=== PATIENT | female | born 1975 | race Two or more races ===

== ENCOUNTER 2023-06-10 10:56 | Emergency (ER) | payer MEDICAID, OTHER ==
[2023-06-10] MEDS ORDERED: MORPHINE SULFATE 4 MG/ML SYR/VIAL IV ONE (12:00)
[2023-06-10] MEDS ORDERED: ONDANSETRON HCL 4 MG/2 ML VIAL IV ONE (12:00)
[2023-06-10] MEDS ORDERED: SODIUM CHLORIDE 0.9% 1,000 ML IVB ONE (12:00)
[2023-06-10 12:25] LABS: Red Blood Cells 3.95 10^6/uL (4.0-5.20); White Blood Cell 8.7 10^3/uL (4.4-10.8)
[2023-06-10 12:27] LABS: Urine Epithelial Cast None Seen /hpf (<5)
[2023-06-10 12:27] LABS: Hemoglobin 10.3 g/dL (12.2-16.2); Mean Corpuscular Hgb Conc. 32.1 g/dL (32.0-36.0); Mean Corpuscular Volume 81.1 fL (80.0-100.0); Red Cell Distribution Width 15.2 % (11.8-14.3)
[2023-06-10 12:31] LABS: Basophils % (manual) 0 (0.0-2.0); Blast Cells 0; Eosinophils % (manual) 0 (0-7); Myelocytes % 0; Promyelocytes % 0; Reactive Lymphocytes 0
[2023-06-10 12:39] LABS: Chloride 105 mmol/L (98-107); Potassium 3.2 mmol/L (3.5-5.1); Sodium 137 mmol/L (136-145)
[2023-06-10 12:40] LABS: Anion Gap 9 (5-15); Calcium 8.6 mg/dL (8.7-10.4); Carbon Dioxide 23 mmol/L (20-30)
[2023-06-10 12:44] LABS: Band Neutrophils % (manual) 13; Lymphocytes % (manual) 6 (10.0-50.0); Metamyelocytes % 7; Monocytes % (manual) 1 (0-12); Platelet Estimate Adequate; Toxic Granulation Slight
[2023-06-10 12:45] LABS: BUN/Creatinine Ratio 13.9 (10.0-20.0); Blood Urea Nitrogen 15 mg/dL (9-23); Glucose 93 mg/dL (74-106); Lipase 31 U/L (12-53)
[2023-06-10 13:02] LABS: Urine Bacteria FEW /hpf (None Seen); Urine Blood 2+ /uL (Negative); Urine Budding Yeast OCCASIONAL /hpf (None Seen); Urine Clarity HAZY (Clear); Urine Color Brown (Yellow); Urine Protein, UAD 1+ (Negative); Urine Specific Gravity 1.019 (1.001-1.035); Urine WBC 621 /hpf (0 - 5); Urine WBC Clumps PRESENT /hpf (None Seen)
[2023-06-10] MEDS ORDERED: cefTRIAXone SOD 1,000 MG VL IM ONE (14:45)
[2023-06-10] MEDS ORDERED: BACDST PO ×2 (14:46→15:12)
[2023-06-10 15:05] VITALS: BP 108/62; PULSE 76; RESP 18; TEMP 97.1; O2SAT 98
[2023-06-10] MEDS ORDERED: HYDR-4902 PO (15:12)
== END 2023-06-10 14:47 | disposition home or self-care (01) ==
LOC: ER 10:56
DX: N12 Tubulo-interstitial nephritis, not specified as acute or chronic (principal); I10 Essential (primary) hypertension; E11.9 Type 2 diabetes mellitus without complications; Z98.890 Other specified postprocedural states; Z79.899 Other long term (current) drug therapy
CPT/HCPCS: 36415; 80048; 81001; 83690; 85007; 85027; 96361; 96372; 96374; 96375; 99284; J0696; J2270; J2405; J7030

== ENCOUNTER 2024-01-01 20:44 | Emergency (ER) | payer MEDICAID, OTHER ==
[~2024-01-01] VITALS: Ht 160 cm; Wt 77.6 kg
[~2024-01-01 20:44] MED LIST: BACDST PO; HYDR-4902 PO
[2024-01-01 23:50] VITALS: BP 139/77; PULSE 64; RESP 12; TEMP 98.4; O2SAT 100
[2024-01-02] MEDS ORDERED: IBUP-1456 PO (01:11)
[2024-01-02] MEDS ORDERED: AMOX875T4 PO (01:11)
[2024-01-02] MEDS ORDERED: ACET500T58 PO (01:14)
[2024-01-02] MEDS: BENZOCAINE (DENTAL) 20 % SPRAY 60ML MT ONE (01:25)
[2024-01-02] MEDS: KETOROLAC TROMETH 60MG/2ML VIAL IM ONE (01:30)
[2024-01-02] MEDS: cefTRIAXone SOD 1,000 MG VL IM ONE (01:30)
== END 2024-01-02 01:34 | disposition home or self-care (01) ==
LOC: ER 20:44
DX: K04.7 Periapical abscess without sinus (principal); I10 Essential (primary) hypertension; E11.9 Type 2 diabetes mellitus without complications; Z98.890 Other specified postprocedural states; Z79.899 Other long term (current) drug therapy
CPT/HCPCS: 96372; 99284; J0696; J1885

== ENCOUNTER 2024-05-08 10:59 | Emergency (ER) | payer MEDICAID, OTHER ==
[~2024-05-08] VITALS: Ht 160 cm; Wt 72.5 kg
[~2024-05-08 10:59] MED LIST changes: +ACET500T58 PO; +AMOX875T4 PO
--- NOTE | 2024-05-08 11:39 | ED.PDOC ---
GI ASSESSMENT HPI Comments HPI: 48y F who presents to the ED for chief complaint of abdominal pain. Pt had the following ED course: - pt has been having nausea, 1x vomiting episode and diarrhea yesterday. Nonbloody nonbilious. - pt states she has been associated abdominal cramps but states her cramps have persisted until day but denies any associated nasuea, vomiting or diarrhea today - pt has taken ibuprofen for pain but states it has not helped - pt denies any associated symptoms at this time. - pt denies sick contacts or changes to diet VITALS: Temp:98.3 F RR: 18 02 sat : 95 % on room air HR: 94 BP: 123/61 PMH: DM, HTN, GERD, PSH: gastric sleeve, breast augmentation Social history: endorses tobacco use, denies ETOH use, endorses drug use (marijuana ) Medications: denies Allergies: none HPI: Poor Historian. REVIEW OF SYSTEMS: CONSTITUTIONAL: Denies acute: fever, diaphoresis, chills, generalized weakness. HEAD: Denies acute: headache, photophobia Eyes: Denies acute: Double vision, vision loss, eye pain, eye discharge. EARS: Denies acute: tinnitus, hearing loss, ear discharge, ear pain, THROAT: Denies acute: sore throat, swelling, difficulty swallowing , pain with swallowing, change in voice. NECK: Denies acute: neck pain, neck swelling, stiff neck. HEART: Denies acute : chest pain, palpitations, LUNGS: Denies acute: SOB, wheezing, cough, hemoptysis ABDOMEN: Denies acute: melena , hematemesis, hematochezia SKIN: Denies acute: rash, redness, lesions, itchiness. EXTREMITIES: Denies acute: calf pain, numbness, tingling, weakness, denies pain in extremity. Denies acute: Low back pain. Neuro: Denies acute: focal neurological deficit, motor or sensory focal neurological deficit, tremors, seizure like activity, confusion, dizziness, change in mental status, loss of bowel or bladder function, cauda equina like symptoms. : Denies acute: dysuria, hematuria, flank pain, increase in urinary frequency. PSYCH: Denies acute: hallucination, suicidal ideation, homicidal ideation. FEMALE: Denies acute: abnormal vaginal bleeding, foul odor, unusual discharge. PHYSICAL EXAM: General: no acute distress, awake and alert. Head: normocephalic, atraumatic. Neck: supple, trachea is midline, no swelling. Throat: Normal phonation. Eyes:, no erythema, no purulent discharge, no proptosis, no icterus. Heart: regular rate, regular rhythm, no significant murmur appreciated. Lungs: no apparent respiratory distress, Able to speak in full sentences. No wheezing, no rhonchi, no crackles. No stridors Clear to auscultation bilaterally. Abdomen: Lower mid abdomen tender to palpation, non distended, soft, no guarding, no rebound, + bowel sounds. Neuro: Awake, Alert, oriented to name, self, situation, follows commands GCS=15. Speech is normal. Skin: no petechia, no purpura, no cyanosis, non-pale, not jaundice. Lower extremities: --no - Pitting edema no deformity, no focal swelling, no calf TTP. Makes eye contact. moves all four extremities. Face: no apparent facial droop. Ambulating in the ED independently. Chief Complaint: Abdominal Pain Time Seen by MD: 11:36 Primary Care Provider: UNKNOWN Reviewed Notes: Nurses Notes, Allergies Allergies: Coded Allergies: NO KNOWN ALLERGIES (Unverified , 06/10/23) Home Meds Active Scripts Ondansetron Odt 4MG Tab (ZOFRAN PO) 4 Mg Tb, 4 MG PO Q8HPRN PRN for 3 Days, #9 TAB ODT TAB-DISSOLVE IN MOUTH, THEN SWALLOW Prov:GARTH GARZON DO 05/08/24 Ciprofloxacin Hcl (Cipro) 500 Mg Tab, 500 MG PO BID for 7 Days, #14 CAP Prov:GARTH GARZON DO 05/08/24 Acetaminophen (Acetaminophen) 500 Mg Tab, 500 MG PO Q4HPRN, #30 TAB 0 Refills Prov:SANDRA RONDON 01/02/24 Amoxicillin & Pot Clavulanate (Amoxicillin/Potassium Cla) 875 Mg Tab, 1 TAB PO BID for 7 Days, #14 TAB 0 Refills Prov:SANDRA RONDON 01/02/24 Hydrocodone-Acetaminophen (Hydrocodone Bitartrate/AC 5-325 mg) 1 Tab Tab, 1 TAB PO DAILY for 5 Days, #5 TAB Prov:NICA ZARAGOZA MD 06/10/23 Sulfamethoxazole W/Trimethopri (Bactrim Ds Tablet) 1 Tab Tb, 1 TAB PO BID for 10 Days, #20 TAB Prov:INCA ZARAGOZA MD 06/10/23 Sulfamethoxazole W/Trimethopri (Bactrim Ds Tablet) 1 Tab Tb, 1 TAB PO BID for 10 Days, #20 TAB Prov:NICA ZARAGOZA MD 06/10/23 Information Source: Patient Mode of Arrival: Ambulatory Past Medical History PAST MEDICAL HISTORY: DM, HTN MEDICAL DETAIL REPRESENTATIVE History: No Pertinent MEDICAL DETAIL REPRESENTATIVE History Family History Family History: Reviewed,noncontributory to illness Social History Smoker: Non-Smoker Alcohol: Denies ETOH Use Drugs: Denies Drug Use Lives In: Home Was a procedure done? Was a procedure done?: No X-Ray, Labs, Meds, VS Vital Signs Date Time Temp Pulse Resp B/P (MAP) Pulse Ox O2 Delivery O2 Flow Rate FiO2 05/08/24 19:38 Room Air* 0 21 05/08/24 19:13 98.5 84 18 106/67 (80) 98 98.5 05/08/24 17:22 101/53 05/08/24 16:34 98.1 90 18 104/62 (76) 100 98.1 05/08/24 13:26 97.9 78 17 124/57 (79) 100 97.9 05/08/24 13:26 78 17 100 Room Air 05/08/24 11:17 98.3 94 18 123/61 (81) 95 Lab Test 05/08/24 18:37 05/08/24 14:19 05/08/24 12:56 05/08/24 11:21 Range/Units White Blood Count 13.6 H 13.9 H 4.4-10.8 10^3/uL Red Blood Count 3.40 L 3.85 L 4.0-5.20 10^6/uL Hemoglobin 7.9 L 8.8 L 12.2-16.2 g/dL Hematocrit 26.1 #L 29.4 L 36.0-46.0 % Mean Corpuscular Volume 76.9 L 76.3 L 80.0-100.0 fL Mean Corpuscular Hemoglobin 23.2 L 22.8 L 28.0-32.0 pg Mean Corpuscular Hemoglobin Concent 30.1 L 29.9 L 32.0-36.0 g/dL Red Cell Distribution Width 17.1 H 17.2 H 11.8-14.3 % Platelet Count 234 322 140-450 10^3/uL Mean Platelet Volume 9.1 9.0 6.9-10.8 fL Neutrophils (%) (Auto) 86.8 H 84.6 H 37.0-80.0 % Lymphocytes (%) (Auto) 7.3 L 9.0 L 10.0-50.0 % Monocytes (%) (Auto) 5.5 6.0 0.0-12.0 % Eosinophils (%) (Auto) 0.3 0.2 0.0-7.0 % Basophils (%) (Auto) 0.1 0.2 0.0-2.0 % Neutrophils # (Auto) 11.8 H 11.8 H 1.6-8.6 10 ^3/uL Lymphocytes # (Auto) 1.0 1.3 0.4-5.4 10 ^3/uL Monocytes # (Auto) 0.8 0.8 0-1.3 10 ^3/uL Eosinophils # (Auto) 0 0 0-0.8 10 ^3/uL Basophils # (Auto) 0 0 0-0.2 10 ^3/uL Nucleated Red Blood Cells 0.0 0.0 % Troponin I High Sensitivity < 3 L < 3 L < 3 L </=34 ng/L Sodium Level 138 136-145 mmol/L Potassium Level 3.8 3.5-5.1 mmol/L Chloride Level 106 98-107 mmol/L Carbon Dioxide Level 24 20-31 mmol/L Anion Gap 8 5-15 Blood Urea Nitrogen 20 9-23 mg/dL Creatinine 1.10 H 0.550-1.02 mg/dL Glomerular Filtration Rate Calc 63 >90 mL/min BUN/Creatinine Ratio 18.2 10.0-20.0 Serum Glucose 111 H 74-106 mg/dL Lactic Acid Level 1.6 0.4-2.0 mmol/L Calcium Level 10.1 8.7-10.4 mg/dL Total Bilirubin 0.8 0.2-1.0 mg/dL Aspartate Amino Transferase (AST) 12 L 13-40 U/L Alanine Aminotransferase (ALT) 12 7-40 U/L Alkaline Phosphatase 70 46-116 U/L Total Protein 6.7 5.7-8.2 g/dL Albumin 4.3 3.2-4.8 g/dL Lipase 35 12-53 U/L Beta HCG, Quantitative 1.6 1.5-4.2 mIU/mL Test 05/08/24 11:19 Range/Units Urine Color Yellow Yellow Urine Clarity Turbid H Clear Urine pH 6.0 5.0-9.0 Urine Specific [place] 1.039 H 1.001-1.035 Urine Protein 1+ H Negative Urine Ketones Trace Negative Urine Blood Negative Negative /uL Urine Nitrite Negative Negative Urine Bilirubin Negative Negative Urine Urobilinogen Normal Negative mg/dL Urine Leukocyte Esterase 3+ Negative /uL Urine RBC 3 0 - 4 /hpf Urine WBC 19 0 - 5 /hpf Urine Squamous Epithelial Cells Many <5 /hpf Urine Bacteria Few H None Seen /hpf Urine Mucus Few None Seen Urine Glucose Normal Normal mg/dL Current Medications Medications (Trade) Dose Ordered Sig/Bernard Route Start Time Stop Time Status Last Admin Sodium Chloride 1,000 ml @ 1,000 mls/hr Q1H ONCE IV 05/08/24 13:15 05/08/24 14:14 DC 05/08/24 13:37 Ondansetron HCl (Zofran Po) 8 mg ONCE ONCE PO 05/08/24 13:15 05/08/24 13:21 DC 05/08/24 13:37 Ceftriaxone Sodium 50 ml @ 100 mls/hr ONCE ONCE IV 05/08/24 13:15 05/08/24 13:44 DC 05/08/24 13:15 Levofloxacin (Levaquin Tablet) 750 mg ONCE ONCE PO 05/08/24 13:15 05/08/24 13:21 DC 05/08/24 13:40 Acetaminophen/ Hydrocodone Bitart (Reseda 5/325MG Tab) 1 tab ONCE ONCE PO 05/08/24 14:15 05/08/24 14:25 DC 05/08/24 14:32 Fentanyl Citrate 100 mcg ONCE ONCE IV 05/08/24 15:45 05/08/24 15:46 DC 05/08/24 17:22 Sodium Chloride 1,000 ml @ 1,000 mls/hr Q1H ONCE IV 05/08/24 16:15 05/08/24 17:14 DC 05/08/24 16:11 [facility] [id number] [place] [id number] Ph: [phone] DIAGNOSTIC IMAGING Diagnostic Imaging Report : [id number] Signed PATIENT: BEL VYAST: [id number] UNIT: [id number] : 1975 LOC: ER ROOM / BED: / AGE / SEX: 48 / F ADM STATUS: REG ER SERVICE 1113 ORDERING PHYSICIAN: GARTH GARZON DO PROCEDURE(s): ABPL - CT AB PEL WO CON-NO ORAL OR IV REASON: LOWER ABD PAIN ORDER NUMBER(s): [id number], ACCESSION NUMBER(s): [id number] CT ABDOMEN AND PELVIS WITHOUT CONTRAST CLINICAL HISTORY: LOWER ABD PAIN TECHNIQUE: Multiple contiguous axial images of the abdomen and pelvis without intravenous contrast. The images were reformatted degenerate coronal and sagittal reconstructions. All CT scans at this medical facility are performed using dose modulation techniques as appropriate to a performed exam including the following:Automated exposure control was utilized; adjustment of the MA and/or KV according to patient size; and use of iterative reconstruction technique. Radiation Dose Information: CT Dose: CTDI volume is 9 mGy. Dose-length product is 438 mGy*cm Comparison: None FINDINGS: Evaluation of the abdomen and pelvis is limited without intravenous contrast. There are gastric postsurgical changes likely related to prior sleeve surgery. There are small hiatal hernia. Gallbladder is surgically absent. The liver, pancreas, kidneys, adrenal glands, and spleen appear within normal limits. There is no gross evidence of abdominal lymphadenopathy. There is no free fluid or free air. The stomach grossly appears unremarkable. The small and large bowel loops demonstrate normal caliber and appear within normal limits.. A normal-appearing appendix is seen in the right lower quadrant abdomen without associated inflammatory changes. The abdominal aorta and IVC appear within normal limits. Bladder is decompressed limiting evaluation. Pelvic organ appears within normal limits. There is no gross evidence of a pelvic mass. There is no free fluid collection. Lung bases are clear. There is no acute osseous abnormality. Bilateral breast implants. IMPRESSION: 1. There is no acute process in the abdomen and pelvis. 2. Likely prior gastric sleeve surgery with small hiatal hernia. 3. Cholecystectomy. HS:Y ATED BY: NIEVES TURCIOS MD DICTATED DATE/TIME: 05/08/241255 SIGNED BY: NIEVES TURCIOS MD SIGNED DATE/TIME: 05/08/241255 CC: [address] [address] Ph: [phone] DIAGNOSTIC IMAGING Diagnostic Imaging Report : [id number] Signed PATIENT: SYEDA VYASACCT: [id number] UNIT: [id number] : 1975 LOC: ER ROOM / BED: / AGE / SEX: 48 / F ADM STATUS: REG ER SERVICE 23 ORDERING PHYSICIAN: GARTH GARZON DO PROCEDURE(s): PELUS - PELVIC REASON: lower abd pain ORDER NUMBER(s): [id number], ACCESSION NUMBER(s): [id number] INDICATION: lower abd pain TECHNIQUE: Multiple real-time grayscale transabdominal sonographic images along with color and duplex Doppler of the uterus and ovaries were obtained. COMPARISON: None FINDINGS: The uterus measures 10.6 x 5.6 x 6.1 cm. The endometrial stripe measures 0.6 cm. Right ovary measures 3.6 x 2.3 x 2.5 cm with normal Doppler color flow. Since is seen in the right ovary measuring 1.7 x 1.3 x 2.4 cm, likely corpus luteal cyst. Left ovary measures 3.6 x 2.4 x 2.8 cm with normal Doppler color flow IMPRESSION: 1. Grossly unremarkable pelvic ultrasound. ATED BY: BRETT REDMAN MD DICTATED DATE/TIME: 05/08/242024 SIGNED BY: BRETT REDMAN MD SIGNED DATE/TIME: 05/08/242024 CC: Time of 1ST Reevaluation: 20:40 Reevaluation 1ST: Improved Patient Education/Counseling: Diagnosis, Treatment Family Education/Counseling: No Family Present Comments MDM: Patient presented with the above HPI.----- abdominal pain -workup was initiated. patient was found with the above mentioned diagnosis. the following medications were ordered: none the following tests were ordered: CT abdomen and pelvis without contrast, troponin x 3, beta HCG, EKG x1, UA, lipase, lactic acid, CMP, CBC Patient ED course and VS have been stabilized. Patient has been reassessed in the ED and remained in a stable condition. Patient has been observed in the ED adequate length of time to insure improvement/stability. Escalation of care considered: Consideration of escalation to observation or admission. patient was DISCHARGED after further evaluation and treatment of their presentation. All the reports of any imaging studies that were ordered by myself were reviewed by myself. Departure 1 Departure Time of Disposition: 13:13 Impression: Primary Impression: Abdominal cramps Additional Impressions: UTI (urinary tract infection) Gastroenteritis Diarrhea Nausea and vomiting Anemia Disposition: HOME / SELF CARE / HOMELESS Condition: Stable Additional Instructions: Additional discharge instructions: You MUST follow-up with your primary care/family doctor in 1 to 2 days. If you are unable to see your primary care/family doctor, please return to our emergency room for re-assessment and re-evaluation in 1 to 2 days. Return to the emergency room here in our facility or to the nearest ER [facility] if your symptoms change or worsen. CONSULTATIONS: you MUST Follow-up for consultation as soon as possible with: Dr. TY Ames and gastroenterology in 1-2 days. Please call for appointment. You MUST call the consultants office yourself to make an appointment. You may need to arrange that through your insurance and/or your primary/family doctor. If you are unable to see the product consultant in 1 to 2 days, you must return to our emergency room (or any other ER of your choice) for re-assessment and re- evaluation. Adequate fluid hydration. Below is a copy of your radiological report for follow up: [place] [address] Ph: [phone] DIAGNOSTIC IMAGING Diagnostic Imaging Report : [id number] Signed PATIENT: SYEDA VYAS ACCT: [id number] UNIT: [id number] : 1975 LOC: ER ROOM / BED: / AGE / SEX: 48 / F ADM STATUS: REG ER SERVICE 1113 ORDERING PHYSICIAN: GARTH GARZON DO PROCEDURE(s): ABPL - CT AB PEL WO CON-NO ORAL OR IV REASON: LOWER ABD PAIN ORDER NUMBER(s): [id number], ACCESSION NUMBER(s): [id number] CT ABDOMEN AND PELVIS WITHOUT CONTRAST CLINICAL HISTORY: LOWER ABD PAIN TECHNIQUE: Multiple contiguous axial images of the abdomen and pelvis without intravenous contrast. The images were reformatted degenerate coronal and sagittal reconstructions. All CT scans at this medical facility are performed using dose modulation techniques as appropriate to a performed exam including the following:Automated exposure control was utilized; adjustment of the MA and/or KV according to patient size; and use of iterative reconstruction technique. Radiation Dose Information: CT Dose: CTDI volume is 9 mGy. Dose-length product is 438 mGy*cm Comparison: None FINDINGS: Evaluation of the abdomen and pelvis is limited without intravenous contrast. There are gastric postsurgical changes likely related to prior sleeve surgery. There are small hiatal hernia. Gallbladder is surgically absent. The liver, pancreas, kidneys, adrenal glands, and spleen appear within normal limits. There is no gross evidence of abdominal lymphadenopathy. There is no free fluid or free air. The stomach grossly appears unremarkable. The small and large bowel loops demonstrate normal caliber and appear within normal limits.. A normal-appearing appendix is seen in the right lower quadrant abdomen without associated inflammatory changes. The abdominal aorta and IVC appear within normal limits. Bladder is decompressed limiting evaluation. Pelvic organ appears within normal limits. There is no gross evidence of a pelvic mass. There is no free fluid collection. Lung bases are clear. There is no acute osseous abnormality. Bilateral breast implants. IMPRESSION: 1. There is no acute process in the abdomen and pelvis. 2. Likely prior gastric sleeve surgery with small hiatal hernia. 3. Cholecystectomy. HS:Y ATED BY: NIEVES TURCIOS MD DICTATED DATE/TIME: 05/08/24 125 SIGNED BY: NIEVES TURCIOS MD SIGNED DATE/TIME: 05/08/241255 CC: [place] [address] Ph: [phone] DIAGNOSTIC IMAGING Diagnostic Imaging Report : [id number] Signed PATIENT: SYEDA VYAS ACCT: [id number] UNIT: [id number] : 1975 LOC: ER ROOM / BED: / AGE / SEX: 48 / F ADM STATUS: REG ER SERVICE 368 ORDERING PHYSICIAN: GARTH GARZON DO PROCEDURE(s): PELUS - PELVIC REASON: lower abd pain ORDER NUMBER(s): [id number], ACCESSION NUMBER(s): [id number] INDICATION: lower abd pain TECHNIQUE: Multiple real-time grayscale transabdominal sonographic images along with color and duplex Doppler of the uterus and ovaries were obtained. COMPARISON: None FINDINGS: The uterus measures 10.6 x 5.6 x 6.1 cm. The endometrial stripe measures 0.6 cm. Right ovary measures 3.6 x 2.3 x 2.5 cm with normal Doppler color flow. Since is seen in the right ovary measuring 1.7 x 1.3 x 2.4 cm, likely corpus luteal cyst. Left ovary measures 3.6 x 2.4 x 2.8 cm with normal Doppler color flow IMPRESSION: 1. Grossly unremarkable pelvic ultrasound. ATED BY: BRETT REDMAN MD DICTATED DATE/TIME: 05/08/242024 SIGNED BY: BRETT REDMAN MD SIGNED DATE/TIME: 05/08/242024 CC: e-Prescriptions Ondansetron Odt 4MG Tab (ZOFRAN PO) 4 Mg Tb 4 MG PO Q8HPRN PRN for 3 Days, #9 TAB ODT TAB-DISSOLVE IN MOUTH, THEN SWALLOW Prov: GARTH GARZON DO 05/08/24 Ciprofloxacin Hcl (Cipro) 500 Mg Tab 500 MG PO BID for 7 Days, #14 CAP Prov: GARTH GARZON DO 05/08/24 Discharged With: Self Critical Care Note Critical Care Time?: No I personally scribed for GARTH GARZON DO (DEANMI) on 05/08/24 at 11:38. Nga ctronically submitted by Chris Ireland ([facility] I personally scribed for GARTH GARZON DO (CHICOFARMI) on 05/08/24 at 11:49. Electronically submitted by Chris Ireland ([facility]). I personally scribed for GARTH GARZON DO (CHICOFARMI) on 05/08/24 at 13:20. Electronically submitted by Chris Ireland ([facility] I personally scribed for GARTH GARZON DO ([facility] on 05/08/24 at 15:32. Electronically submitted by Chris Ireland ([facility] I personally scribed for GARTH GARZON DO ([facility]) on 05/08/24 at 20:42. Electronically submitted by Chris Ireland ([facility] GARTH GARZON DO May 08, 2024 11:38
[2024-05-08 11:43] LABS: Urine Bacteria FEW /hpf (None Seen); Urine Blood Negative /uL (Negative); Urine Clarity Turbid (Clear); Urine Color Yellow (Yellow); Urine Mucus FEW (None Seen); Urine Protein, UAD 1+ (Negative); Urine Specific Gravity 1.039 (1.001-1.035); Urine Squamous Epithelial Cell MANY /hpf (<5); Urine Urobilinogen Normal (Negative); Urine WBC 19 /hpf (0 - 5)
[2024-05-08 11:44] LABS: Basophils # (auto) 0 10 ^3/uL (0-0.2); Basophils % (auto) 0.2 % (0.0-2.0); Eosinophils # (auto) 0 10 ^3/uL (0-0.8); Eosinophils % (auto) 0.2 % (0.0-7.0); Hematocrit 29.4 % (36.0-46.0); Hemoglobin 8.8 g/dL (12.2-16.2); Lymphocytes # (auto) 1.3 10 ^3/uL (0.4-5.4); Mean Corpuscular Hemoglobin 22.8 pg (28.0-32.0); Mean Corpuscular Hgb Conc. 29.9 g/dL (32.0-36.0); Mean Corpuscular Volume 76.3 fL (80.0-100.0); Monocytes # (auto) 0.8 10 ^3/uL (0-1.3); Neutrophils # (auto) 11.8 10 ^3/uL (1.6-8.6); Neutrophils % (auto) 84.6 % (37.0-80.0); Platelet Count (auto) 322 10^3/uL (140-450); Red Blood Cells 3.85 10^6/uL (4.0-5.20); Red Cell Distribution Width 17.2 % (11.8-14.3); White Blood Cell 13.9 10^3/uL (4.4-10.8)
[2024-05-08 12:16] LABS: Alanine Aminotransferase 12 U/L (7-40); Albumin 4.3 g/dL (3.2-4.8); Alkaline Phosphatase 70 U/L (46-116); Anion Gap 8 (5-15); BUN/Creatinine Ratio 18.2 (10.0-20.0); Blood Urea Nitrogen 20 mg/dL (9-23); Calcium 10.1 mg/dL (8.7-10.4); Carbon Dioxide 24 mmol/L (20-31); Chloride 106 mmol/L (98-107); Potassium 3.8 mmol/L (3.5-5.1); Sodium 138 mmol/L (136-145)
[2024-05-08 12:17] LABS: Bilirubin, Total 0.8 mg/dL (0.2-1.0); Total Protein 6.7 g/dL (5.7-8.2)
[2024-05-08 12:34] LABS: Aspartate Aminotransferase 12 U/L (13-40); Glucose 111 mg/dL (74-106)
--- NOTE | 2024-05-08 12:57 | DVH ---
CT ABDOMEN AND PELVIS WITHOUT CONTRAST CLINICAL HISTORY: LOWER ABD PAIN TECHNIQUE: Multiple contiguous axial images of the abdomen and pelvis without intravenous contrast. The images were reformatted degenerate coronal and sagittal reconstructions. All CT scans at this medical facility are performed using dose modulation techniques as appropriate t o a performed exam including the following:Automated exposure control was utilized; adjustment of the MA and/or KV according to patient size; and use of iterative reconstruction technique. Radiation Dose Information: CT Dose: CTDI volume is 9 mGy. Dose-length product is 438 mGy*cm Comparison: None FINDINGS: Evaluation of the abdomen and pelvis is limited without intravenous contrast. There are gastric postsurgical changes likely related to prior sleeve surgery. There are small hiata l hernia. Gallbladder is surgically absent. The liver, pancreas, kidneys, adrenal glands, and sple en appear within normal limits. There is no gross evidence of abdominal lymphadenopathy. There is no free fluid or free air. The stomach grossly appears unremarkable. The small and large bowel loops demonstrate normal caliber and appear within normal limits.. A normal-appearing appendix is seen in the right lower quadrant a bdomen without associated inflammatory changes. The abdominal aorta and IVC appear within normal limits. Bladder is decompressed limiting evaluation. Pelvic organ appears within normal limits. There is no gross evidence of a pelvic mass. There is no free fluid collection. Lung bases are clear. There is no acute osseous abnormality. Bilateral breast implants. IMPRESSION: 1. There is no acute process in the abdomen and pelvis. 2. Likely prior gastric sleeve surgery with small hiatal hernia. 3. Cholecystectomy. HS:Y
[2024-05-08] MEDS: cefTRIAXone 1GM/50ML D5W 50 ML IV ONE (13:15)
[2024-05-08 13:25] LABS: Lipase 35 U/L (12-53)
[2024-05-08] MEDS: ONDANSETRON ODT 4 MG TAB PO ONE (13:37)
[2024-05-08] MEDS: SODIUM CHLORIDE 0.9% 1,000 ML IV ONE ×2 (13:37→16:11)
[2024-05-08] MEDS: levoFLOXacin 250 MG TAB PO ONE (13:40)
[2024-05-08] MEDS: HYDROcodone-ACET 5/325MG TAB PO ONE (14:32)
[2024-05-08] MEDS: fentaNYL CITRATE 100 MCG/2 ML VL IV ONE (17:22)
[2024-05-08 19:05] LABS: Basophils # (auto) 0 10 ^3/uL (0-0.2); Eosinophils # (auto) 0 10 ^3/uL (0-0.8); Mean Corpuscular Hemoglobin 23.2 pg (28.0-32.0); Mean Corpuscular Hgb Conc. 30.1 g/dL (32.0-36.0); Monocytes % (auto) 5.5 % (0.0-12.0); Neutrophils # (auto) 11.8 10 ^3/uL (1.6-8.6); Neutrophils % (auto) 86.8 % (37.0-80.0); White Blood Cell 13.6 10^3/uL (4.4-10.8)
[2024-05-08 19:07] LABS: Basophils % (auto) 0.1 % (0.0-2.0); Eosinophils % (auto) 0.3 % (0.0-7.0); Hematocrit 26.1 % (36.0-46.0); Hemoglobin 7.9 g/dL (12.2-16.2); Lymphocytes % (auto) 7.3 % (10.0-50.0); Mean Corpuscular Volume 76.9 fL (80.0-100.0); Monocytes # (auto) 0.8 10 ^3/uL (0-1.3); Platelet Count (auto) 234 10^3/uL (140-450); Red Cell Distribution Width 17.1 % (11.8-14.3)
[2024-05-08 19:13] VITALS: BP 106/67; PULSE 84; RESP 18; TEMP 98.5; O2SAT 98
--- NOTE | 2024-05-08 20:27 | DVH ---
INDICATION: lower abd pain TECHNIQUE: Multiple real-time grayscale transabdominal sonographic images along with color and duplex Doppler of the uterus and ovaries were obtained. COMPARISON: None FINDINGS: The uterus measures 10.6 x 5.6 x 6.1 cm. The endometrial stripe measures 0.6 cm. Right ovary measures 3.6 x 2.3 x 2.5 cm with normal Doppler color flow. Since is seen in the right ov fatmata measuring 1.7 x 1.3 x 2.4 cm, likely corpus luteal cyst. Left ovary measures 3.6 x 2.4 x 2.8 cm with normal Doppler color flow IMPRESSION: 1. Grossly unremarkable pelvic ultrasound.
[2024-05-08] MEDS ORDERED: ZOFR4T PO (20:38)
[2024-05-08] MEDS ORDERED: CIPR-173 PO (20:38)
== END 2024-05-08 21:10 | disposition home or self-care (01) ==
LOC: ER 10:59
DX: K52.9 Noninfective gastroenteritis and colitis, unspecified (principal); D64.9 Anemia, unspecified; N39.0 Urinary tract infection, site not specified; I10 Essential (primary) hypertension; K21.9 Gastro-esophageal reflux disease without esophagitis; F12.90 Cannabis use, unspecified, uncomplicated; E11.9 Type 2 diabetes mellitus without complications; Z98.84 Bariatric surgery status
CPT/HCPCS: 36415; 74176; 76856; 80053; 81001; 83605; 83690; 84484; 84702; 85025; 96361; 96365; 96375; 99285; J0696; J3010; J7030; Q0162